=== PATIENT | female | born 2000 | race Caucasian/White ===

== ENCOUNTER 2020-08-09 16:09 | Emergency (ER) | payer MEDICAID ==
[~2020-08-09] VITALS: Ht 157.5 cm; Wt 53.4 kg
--- NOTE | 2020-08-09 18:20 | NUR ---
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 PT RETURNED TO LOBBY W/O INCIDENT. RESP EVEN AND UNLABORED, AMPARO.
[2020-08-09 18:52] VITALS: BP 95/54
--- NOTE | 2020-08-09 18:52 | NUR ---
Patient/Caregiver given discharge instructions and they have confirmed that they understand the instructions. Patient ambulatory with steady gait.
== END 2020-08-09 18:56 | disposition home or self-care (01) ==
LOC: ED 18:50
DX: R00.2 Palpitations (principal)
CPT/HCPCS: 93005; 99283